=== PATIENT | male | born 1965 | race Caucasian/White ===

== ENCOUNTER 2023-11-14 16:36 | Emergency (ER) | payer OTHER | END 2023-11-14 17:23 | disposition home or self-care (01) | LOC: LB.ED 16:36 | DX: S01.91XA Laceration without foreign body of unspecified part of head, initial encounter (principal); Z79.899 Other long term (current) drug therapy; W22.8XXA Striking against or struck by other objects, initial encounter | CPT/HCPCS: 12001; 99282; 99283 ==